=== PATIENT | female | born 1950 | race Caucasian/White ===

== ENCOUNTER 2019-11-15 09:48 | Emergency (ER) | payer OTHER ==
[~2019-11-15] VITALS: Ht 165.1 cm; Wt 69.4 kg
[2019-11-15 09:54] VITALS: BP 178/101
--- NOTE | 2019-11-15 09:56 | NUR ---
Patient ambulated to bed 7 with family. RN evaluating patient at bedside.
[2019-11-15] MEDS ORDERED: KETOROLAC 60 MG/2 ML VIAL IM ONE (10:15)
--- NOTE | 2019-11-15 12:02 | NUR ---
Dr. Kennedy is evaluating the patient at bedside.
[2019-11-15 12:38] VITALS: BP 160/89
--- NOTE | 2019-11-15 12:38 | NUR ---
Patient discharged with v/s stable. Written and verbal after care instructions given and explained cervical sprain. Patient alert, oriented and verbalized understanding of instructions. Ambulatory with steady gait. All questions addressed prior to discharge. ID band removed. Patient advised to follow up with PMD. Rx of motrin and norco given. Patient educated on indication of medication including possible reaction and side effects. Opportunity to ask questions provided and answered.Pt given excuse from work.
== END 2019-11-15 12:38 | disposition home or self-care (01) ==
LOC: MED 09:48
DX: S13.9XXA Sprain of joints and ligaments of unspecified parts of neck, initial encounter (principal); I10 Essential (primary) hypertension
CPT/HCPCS: 96372; 99283; J1885